=== PATIENT | male | born 1950 | race Caucasian/White ===

== ENCOUNTER 2019-11-28 12:21 | Outpatient (CLI) | payer MEDICARE, OTHER, SELFPAY ==
[2019-11-28 13:26] LABS: Hematocrit 41.5 % (42.0-52.0); Hemoglobin 13.2 g/dL (11.7-16.6); Mean Corpuscular HGB Conc 31.8 g/dL (30.0-36.0); Mean Corpuscular Hemoglobin 26.4 pg (28.0-34.0); Mean Platelet Volume 10.2 fL (7.4-10.4); Platelet Count 208 10^3/cmm (130-400); Red Cell Distribution Width 14.2 % (12.1-15.1); White Blood Count 5.3 10^3/uL (4.0-10.0)
[2019-11-28 13:27] LABS: Ferritin 19 ng/mL (30-400); Iron 55 ug/dL (59-158); Percent Saturation 26.9 % (20-50); Total Iron Binding Capacity 204 mcg/dl; Unsaturated Iron Binding 149 ug/dL (112-347)
[2019-11-28 13:48] LABS: Platelet Estimate Normal (Normal); Total Cells Counted 100 (0-100)
[2019-11-28 13:51] LABS: Absolute Segmented Neutrophil 3.2 10/cmm (1.6-7.1); Band Neutrophils Absolute 0.1 10^3/cmm (0.0-1.2); Lymphocytes 29 %; Monocytes Absolute 0.4 10^3/cmm (0.1-0.6); Segmented Neutrophils 62 %
== END 2019-11-28 12:22 | disposition home or self-care (01) ==
LOC: ONCMED 12:25
PROVIDERS: Family Provider Family Medicine; PCP Family Medicine; Visit Provider Internal Medicine Medical Oncology
DX: E83.119 Hemochromatosis, unspecified (principal)
CPT/HCPCS: 36415; 82728; 83540; 83550; 85007; 85027

== ENCOUNTER 2019-12-26 09:42 | Outpatient (CLI) | payer MEDICARE, OTHER, SELFPAY ==
[2019-12-26 10:16] LABS: Hematocrit 42.7 % (42.0-52.0); Hemoglobin 13.3 g/dL (11.7-16.6); Lymphocytes # 1.7 10^3/uL (0.8-4.8); Lymphocytes % 51.8 %; Mean Corpuscular HGB Conc 31.1 g/dL (30.0-36.0); Mean Corpuscular Hemoglobin 26.4 pg (28.0-34.0); Mean Corpuscular Volume 84.9 fL (80-94); Mean Platelet Volume 11.4 fL (7.4-10.4); Monocytes # 0.4 10^3/uL (0.2-0.9); Monocytes % 11.3 %; Neutrophils # 1.2 10^3/uL (1.8-7.7); Neutrophils % 36.9 %; Nucleated Red Blood Cells % 0 %; Platelet Count 149 10^3/cmm (130-400); Red Blood Count 5.03 10^6/uL (4.1-5.3); Red Cell Distribution Width 15.2 % (12.1-15.1); White Blood Count 3.3 10^3/uL (4.0-10.0)
[2019-12-26 10:32] LABS: Ferritin 20 ng/mL (30-400); Iron 77 ug/dL (59-158)
[2019-12-26 10:37] LABS: Percent Saturation 31.1 % (20-50); Total Iron Binding Capacity 247 mcg/dl; Unsaturated Iron Binding 170 ug/dL (112-347)
== END 2019-12-26 09:43 | disposition home or self-care (01) ==
LOC: ONCMED 09:43
PROVIDERS: Family Provider Family Medicine; PCP Family Medicine; Visit Provider Nurse Practitioner
DX: E83.119 Hemochromatosis, unspecified (principal)
CPT/HCPCS: 36415; 82728; 83540; 83550; 85025

== ENCOUNTER 2020-02-26 12:45 | Outpatient (CLI) | payer MEDICARE, OTHER, SELFPAY ==
[2020-02-26 13:36] LABS: Hematocrit 45.3 % (42.0-52.0); Hemoglobin 14.2 g/dL (11.7-16.6); Lymphocytes # 2.3 10^3/uL (0.8-4.8); Lymphocytes % 45.8 %; Mean Corpuscular HGB Conc 31.3 g/dL (30.0-36.0); Mean Corpuscular Volume 86.3 fL (80-94); Mean Platelet Volume 10.4 fL (7.4-10.4); Monocytes # 0.6 10^3/uL (0.2-0.9); Monocytes % 12.5 %; Neutrophils # 2.1 10^3/uL (1.8-7.7); Neutrophils % 41.7 %; Nucleated Red Blood Cells % 0 %; Platelet Count 201 10^3/cmm (130-400); Red Blood Count 5.25 10^6/uL (4.1-5.3); White Blood Count 5.1 10^3/uL (4.0-10.0)
[2020-02-26 13:48] LABS: Ferritin 22 ng/mL (30-400); Iron 45 ug/dL (59-158); Percent Saturation 18.5 % (20-50); Total Iron Binding Capacity 243 mcg/dl; Unsaturated Iron Binding 198 ug/dL (112-347)
== END 2020-02-26 12:46 | disposition home or self-care (01) ==
LOC: ONCMED 12:48
PROVIDERS: Family Provider Family Medicine; PCP Family Medicine; Visit Provider Internal Medicine Medical Oncology
DX: E83.110 Hereditary hemochromatosis (principal)
CPT/HCPCS: 36415; 82728; 83540; 83550; 85025; 99195

== ENCOUNTER 2020-05-28 12:23 | Outpatient (CLI) | payer MEDICARE, OTHER, SELFPAY ==
[2020-05-28 13:19] LABS: Basophils % 0.2 %; Hematocrit 41.8 % (42.0-52.0); Hemoglobin 13.1 g/dL (11.7-16.6); Lymphocytes # 2.2 10^3/uL (0.8-4.8); Lymphocytes % 50.2 %; Mean Corpuscular HGB Conc 31.3 g/dL (30.0-36.0); Mean Corpuscular Volume 86.2 fL (80-94); Mean Platelet Volume 10.4 fL (7.4-10.4); Monocytes # 0.4 10^3/uL (0.2-0.9); Monocytes % 9.9 %; Neutrophils # 1.73 10^3/uL (1.8-7.7); Neutrophils % 39.7 %; Nucleated Red Blood Cells % 0 %; Platelet Count 189 10^3/cmm (130-400); Red Blood Count 4.85 10^6/uL (4.1-5.3); Red Cell Distribution Width 14.8 % (12.1-15.1); White Blood Count 4.4 10^3/uL (4.0-10.0)
[2020-05-28 13:38] LABS: Ferritin 17 ng/mL (30-400); Iron 57 ug/dL (59-158); Percent Saturation 24.6 % (20-50); Total Iron Binding Capacity 231 mcg/dl; Unsaturated Iron Binding 174 ug/dL (112-347)
== END 2020-05-28 12:24 | disposition home or self-care (01) ==
LOC: ONCMED 12:26
PROVIDERS: PCP Family Medicine; Visit Provider Internal Medicine Medical Oncology
DX: E83.110 Hereditary hemochromatosis (principal)
CPT/HCPCS: 82728; 83540; 83550; 85025; 99195

== ENCOUNTER 2020-08-28 11:42 | Outpatient (CLI) | payer MEDICARE, OTHER, SELFPAY ==
[2020-08-28 12:24] LABS: Basophils % 0.2 %; Hemoglobin 13.3 g/dL (11.7-16.6); Lymphocytes % 45.9 %; Mean Corpuscular HGB Conc 30.9 g/dL (30.0-36.0); Mean Corpuscular Hemoglobin 26.2 pg (28.0-34.0); Mean Corpuscular Volume 84.8 fL (80-94); Mean Platelet Volume 10.4 fL (7.4-10.4); Monocytes # 0.5 10^3/uL (0.2-0.9); Monocytes % 11.5 %; Neutrophils % 42.4 %; Nucleated Red Blood Cells % 0 %; Platelet Count 172 10^3/cmm (130-400); Red Blood Count 5.07 10^6/uL (4.1-5.3); Red Cell Distribution Width 16.2 % (12.1-15.1); White Blood Count 4.3 10^3/uL (4.0-10.0)
[2020-08-28 13:23] LABS: Alanine Aminotransferase 19 U/L (0-41); Albumin Level 4.2 g/dL (3.5-5.2); Alkaline Phosphatase 108 IU/L (40-130); Anion Gap 13.2 (5-19); Aspartate Amino Transferase 21 U/L (0-40); Blood Urea Nitrogen 23 mg/dL (8-23); Calcium 9.7 mg/dL (8.5-10.5); Carbon Dioxide 27 mmol/L (22-29); Chloride 106 mmol/L (98-107); Ferritin 23 ng/mL (30-400); Globulin 2.9 g/dL (1.3-4.6); Glucose 108 mg/dL (65-115); Iron 64 ug/dL (59-158); Osmolality Calculated 298 mOsm/kg (285-295); Percent Saturation 30.4 % (20-50); Potassium 4.2 mmol/L (3.5-5.1); Sodium 142 mmol/L (136-145); Total Bilirubin 0.2 mg/dL (0.15-1.2); Total Iron Binding Capacity 210 mcg/dl; Total Protein 7.1 g/dL (6.6-8.7); Unsaturated Iron Binding 146 ug/dL (112-347)
--- NOTE | 2020-08-31 14:35 | ONC FU_ITS ---
Dr. Baker Patient Follow-Up Note Patient: Yefri Mandel Unit #: [id number]: [id number] Dicatated By: Mendoza Baker M.D.Date of Visit:Aug 28, 2020 Onc Med Follow-up/Prog Note Chief Complaint: Hemochromatosis. History of Present Illness: This is a 70 year-old man with hereditary hemochromatosis. His hemochromatosis was initially discovered in 2002. He underwent screening because his brother had been diagnosed with it. He indicated that his ferritin level at that time was in excess of 10,000 ng/mL and that he required weekly phlebotomies for a year and a half to get it down to normal. I had seen him initially in February 2013. His serum iron was 88 mcg/dL and his ferritin was actually low at 17 ng/mL, and I had recommended observation/expectant management. He opted to just continue his regular follow-up with Dr. Reyez. His other medical illnesses include GERD, degenerative arthritis, and benign prostatic hypertrophy. He had a suspected TIA in 2011. He was placed on aspirin prophylaxis. He is a nonsmoker. INTERIM HISTORY: Last fall he had stopped his aspirin because of increased hemorrhoidal bleeding. He then had an episode of visual loss in the right eye which was actually worse than the episode he had in 2012. He restarted aspirin, but just taking 1 tablet every 3 days. In the meantime, he had laboratory studies on 11/17/2018 which included CBC showing hemoglobin 16.9 g with white blood cell count 4000 and platelet count 187,000. His serum iron studies showed elevated serum iron of 167 mcg/dL with transferrin saturation 69%. The ferritin had increased to 131 ng/mL. At that point I had recommended that he restart monthly phlebotomies. As of August 2019 his ferritin was back down to 31 ng/mL, at that point his phlebotomies were reduced to every 3 months. He is seen for a scheduled visit. He has been feeling good generally. He has pretty good energy, and he has normal activity. ECOG score is 0. His appetite is good. He has no fever or night sweats. He has no shortness of breath, cough, or chest pain. He has no GI complaints other than chronic constipation, which he manages with stool softeners. He has some chronic bladder symptoms, including nocturia 3 or 4 times, but bladder function remains adequate with tamsulosin. He does have fairly generalized arthritis pain, particularly in the knees, shoulders, and wrists. He has had a few slight headaches. He does complain that his hands go to sleep very easily. He has no other focal neurologic symptoms. Medications: Aspirin 1 Tablet (of 81 mg) Oral daily, Carvedilol 1 Tablet (of 6.25 mg) Oral daily, CeleBREX 100 mg - Take 1 Capsule Oral daily, Finasteride 1 Tablet (of 5 mg) Oral daily, Flomax 0.4 mg - Take 1 Capsule Oral daily, Pantoprazole Sodium 1 Tablet (of 40 mg) Tablet, enteric coated Oral daily Allergies: No Known Allergies. Review of Systems: Constitutional - He has pretty good energy. His activity is normal. Appetite is good and weight is stable. No fever, night sweats, or hot flashes. ECOG score is 0, ENMT - No sinus congestion/drainage. No mouth sores. No sore throat or difficulty swallowing, Hematologic/Lymphatic - No abnormal bruising or bleeding, Respiratory - No shortness of breath. No cough. No pleuritic pain or hemoptysis, Cardiovascular - No angina pain. No palpitations, Gastrointestinal - No nausea or vomiting. No heartburn or acid reflux. He has chronic constipation. He has been taking stool softeners. No blood in the stool or black stools, Genitourinary (M) - No dysuria or hematuria. He has urinary frequency and nocturia. No urgency or incontinence. He does see a urologist, Musculoskeletal - He has arthritis pain, most significantly in his knees, but also in his shoulders, wrists, and hands, Integumentary - No skin rash, Neurologic - He has had a few slight headaches. No dizziness. His hands tend to go to sleep easily. No other focal neurologic symptoms, Psychiatric - No anxiety or depression. He has some difficulty sleeping. Vital Signs: Performed on Aug 28, 2020 13:13 Height - 68.00 in Weight - 203.6 lbs (HIGH) BSA - 2.06 sq.m BMI - 30.96 (HIGH) Temperature - 97.8 F (LOW) Pulse - 72 /min Respiration - 18 /min BP - 124/63 mm(hg) O2 Sat - 99 % Pain - 0 Physical Examination: Constitutional - He looks good generally, Eyes - Sclerae nonicteric. Conjunctivae clear, ENMT - No lesions noted in the oral cavity, Hematologic/Lymphatic - No cervical, clavicular, or axillary adenopathy, Respiratory - Lungs are clear with good air movement bilaterally, Cardiovascular - Heart rhythm is regular. There is no murmur, gallop, or rub noted, Abdomen - Mildly distended. Liver and spleen are not enlarged. No abdominal mass or ascites noted. No inguinal adenopathy, Extremities - No edema, Neurologic - No focal neurologic deficits noted. Lab/Imaging: Test performed on Aug 28, 2020 12:10 Ferritin 23 ng/mL Iron 64 mcg/dL Sodium 142 mmol/L Iron Binding Capacity (TIBC) 210 mcg/dl Potassium 4.2 mmol/L % Iron Saturation 30.4 % Chloride 106 mmol/L CO2 27 mmol/L UIBC 146 mcg/dL Anion Gap 13.2 BUN 23 mg/dL Creatinine 0.8 mg/dL Cr Clearance (Est) 109.0300 mL/min Glucose 108 mg/dL Osmolality - Calculated 298 mOsm/kg Calcium 9.7 mg/dL Protein, Total 7.1 g/dL Albumin 4.2 g/dL Globulin 2.9 g/dL Bilirubin, Total 0.2 mg/dL ALT (SGPT) 19 U/L AST (SGOT) 21 U/L Alkaline Phosphatase 108 IU/L WBC 4.3 10 3/uL RBC 5.07 10 6/uL HGB 13.3 g/dL HCT 43.0 % MCV 84.8 fL MCH 26.2 pg MCHC 30.9 g/dL RDW 16.2 % Platelet Count 172 10 3/cmm MPV 10.4 fL Neutrophils 1.80 10 3/uL Lymphocytes 2.0 10 3/uL Monocytes 0.5 10 3/uL Eosinophils 0.0 10 3/uL Basophils 0.0 10 3/uL Neutrophil % 42.4 % Lymphocyte % 45.9 % Monocyte % 11.5 % Eosinophil % 0.0 % Basophils % 0.2 % NRBC % 0 % Impression: 1. Patient with hereditary hemochromatosis, initially diagnosed in 2002. It has been managed very well with phlebotomies. As of my initial visit with him in February 2013 his serum iron was in normal range and his ferritin was relatively low at 17 ng/mL. 2. He has been followed on expected management with gradual increase in his iron levels, currently with transferrin saturation 59% and ferritin level 131 ng/mL. 3. He had a recent TIA episode while off aspirin prophylaxis. His other medical illnesses include: 4. Hypertension. 5. Hyperlipidemia. 6. GERD. 7. Degenerative arthritis. 8. Benign prostatic hypertrophy. 9. He has a history of prior TIA in 2011. His laboratory studies in October 2018 that shows some increase in his transferrin saturation and ferritin levels, and at that point I did recommend that he restart monthly phlebotomy. As of his follow-up visit in February the transferrin saturation was still elevated, though his ferritin at that point had back down to 59 ng/mL. As of his follow-up visit in August 2019 he had been getting treatment for hives. A specific cause for that was never determined, but it did get better. His ferritin level at that point had decreased to 31 ng/mL, and the frequency of his phlebotomies was reduced to every 3 months. He has since then been doing well clinically. His transferrin saturation and his ferritin level have remained in target range. Plan: He will be phlebotomized today, but going forward I will reduced the frequencies of his phlebotomies to every 6 months. I will see him again in 1 year. Signed By: Mendoza Baker M.D. <<Signature on File>>
== END 2020-08-28 11:43 | disposition home or self-care (01) ==
LOC: ONCMED 11:46
PROVIDERS: PCP Family Medicine; Visit Provider Internal Medicine Medical Oncology
DX: E83.110 Hereditary hemochromatosis (principal); D50.9 Iron deficiency anemia, unspecified; I10 Essential (primary) hypertension; E78.5 Hyperlipidemia, unspecified; K21.9 Gastro-esophageal reflux disease without esophagitis; M19.90 Unspecified osteoarthritis, unspecified site; N40.0 Benign prostatic hyperplasia without lower urinary tract symptoms; Z86.73 Personal history of transient ischemic attack (TIA), and cerebral infarction without residual deficits
CPT/HCPCS: 80053; 82728; 83540; 83550; 85025; 99195; 99214

== ENCOUNTER 2021-02-27 12:52 | Outpatient (CLI) | payer MEDICARE, OTHER, SELFPAY ==
[2021-02-27 14:04] LABS: Basophils % 0.6 %; Hemoglobin 13.5 g/dL (11.7-16.6); Lymphocytes # 2.2 10^3/uL (0.8-4.8); Lymphocytes % 41.4 %; Mean Corpuscular HGB Conc 31.4 g/dL (30.0-36.0); Mean Corpuscular Hemoglobin 27.1 pg (28.0-34.0); Mean Corpuscular Volume 86.2 fL (80-94); Mean Platelet Volume 10.2 fL (7.4-10.4); Monocytes # 0.7 10^3/uL (0.2-0.9); Monocytes % 12.5 %; Neutrophils % 45.3 %; Nucleated Red Blood Cells % 0 %; Platelet Count 205 10^3/cmm (130-400); Red Blood Count 4.99 10^6/uL (4.1-5.3); Red Cell Distribution Width 15.5 % (12.1-15.1); White Blood Count 5.3 10^3/uL (4.0-10.0)
[2021-02-27 14:29] LABS: Iron 40 ug/dL (59-158); Total Iron Binding Capacity 221 mcg/dl; Unsaturated Iron Binding 181 ug/dL (112-347)
[2021-02-27 14:30] LABS: Ferritin 20 ng/mL (30-400)
== END 2021-02-27 12:53 | disposition home or self-care (01) ==
LOC: ONCMED 12:58
PROVIDERS: PCP Family Medicine; Visit Provider Internal Medicine Medical Oncology
DX: E83.110 Hereditary hemochromatosis (principal); D50.9 Iron deficiency anemia, unspecified
CPT/HCPCS: 82728; 83540; 83550; 85025; 99195

== ENCOUNTER 2021-11-05 11:01 | Outpatient (CLI) | payer MEDICARE, OTHER, SELFPAY ==
[2021-11-05 11:57] LABS: Basophils % 0.5 %; Hematocrit 47.8 % (42.0-52.0); Hemoglobin 15.6 g/dL (11.7-16.6); Lymphocytes % 48.6 %; Mean Corpuscular HGB Conc 32.6 g/dL (30.0-36.0); Mean Corpuscular Hemoglobin 28.9 pg (28.0-34.0); Mean Corpuscular Volume 88.7 fl (80-94); Mean Platelet Volume 10.3 fL (7.4-10.4); Monocytes # 0.4 10^3/uL (0.2-0.9); Monocytes % 10.6 %; Neutrophils # 1.66 10^3/uL (1.8-7.7); Neutrophils % 40.1 %; Nucleated Red Blood Cells % 0 %; Platelet Count 183 10^3/cmm (130-400); Red Blood Count 5.39 10^6/uL (4.1-5.3); Red Cell Distribution Width 15.1 % (12.1-15.1); White Blood Count 4.1 10^3/uL (4.0-10.0)
[2021-11-05 12:30] LABS: Alanine Aminotransferase 16 U/L (0-41); Albumin Level 4.2 g/dL (3.5-5.2); Alkaline Phosphatase 117 IU/L (40-130); Anion Gap 16.8 (5-19); Aspartate Amino Transferase 20 U/L (0-40); Blood Urea Nitrogen 20 mg/dL (8-23); Calcium 8.9 mg/dL (8.5-10.5); Carbon Dioxide 25 mmol/L (22-29); Chloride 100 mmol/L (98-107); Ferritin 41 ng/mL (30-400); Globulin 2.9 g/dL (1.3-4.6); Glucose 85 mg/dL (65-115); Iron 104 ug/dL (59-158); Osmolality Calculated 286 mOsm/kg (285-295); Percent Saturation 44.8 % (20-50); Potassium 4.8 mmol/L (3.5-5.1); Sodium 137 mmol/L (136-145); Total Bilirubin 0.4 mg/dL (0.15-1.2); Total Iron Binding Capacity 232 mcg/dl; Total Protein 7.1 g/dL (6.6-8.7); Unsaturated Iron Binding 128 ug/dL (112-347)
[2021-11-05 14:35] LABS: Erythrocyte Sedimentation Rate 12 mm/hr (0-10)
[2021-11-06 15:47] LABS: Anti-Nuclear Antibody Screen NEGATIVE (NEGATIVE)
--- NOTE | 2021-11-08 12:27 | ONC FU_ITS ---
Dr. Baker Patient Follow-Up Note Patient: Yefri Mandel Unit #: [id number]: 1950 Dicatated By: Mendoza Baker M.D.Date of Visit:Nov 05, 2021 Onc Med Follow-up/Prog Note Chief Complaint: Hemochromatosis. History of Present Illness: This is a 71 year-old man with hereditary hemochromatosis. His hemochromatosis was initially discovered in 2002. He underwent screening because his brother had been diagnosed with it. He indicated that his ferritin level at that time was in excess of 10,000 ng/mL and that he required weekly phlebotomies for a year and a half to get it down to normal. I had seen him initially in February 2013. His serum iron was 88 mcg/dL and his ferritin was actually low at 17 ng/mL, and I had recommended observation/expectant management. He opted to just continue his regular follow-up with Dr. Reyez. As of October 2018 his serum iron studies showed elevated transferrin saturation at 69% with his ferritin increased to 131 ng/mL. At that point I had recommended that he restart monthly phlebotomies. As of August 2019 his ferritin was back down to 31 ng/mL, and his phlebotomies were reduced to every 3 months. As of August 2020 his transferrin saturation and ferritin remained in target range and he was recommended to continue phlebotomies at 6-month intervals. His other medical illnesses include GERD, degenerative arthritis, and benign prostatic hypertrophy. He had a suspected TIA in 2011. He was placed on aspirin prophylaxis. In 2017 he had stopped his aspirin because of increased hemorrhoidal bleeding. He then had an episode of visual loss in the right eye which was actually worse than the episode he had in 2012. He restarted aspirin, but just taking 1 tablet every 3 days. He is a nonsmoker. INTERIM HISTORY: He is seen for a follow-up visit. He has not been feeling as good generally, mainly because his arthritis has been bothering him a lot. He says his knees are worn out and recently has been having significant pain in the left hip area. He also has pain in his fingers, wrists, and right elbow and he complains that his fingers go to sleep very easily. He is on treatment with Celebrex 100 mg twice daily. His energy is just so-so. ECOG score is 1. He has good appetite. He has no fever or night sweats. He has just occasional cough. He does not complain of shortness of breath or chest pain. He has no GI/ complaints other than some chronic constipation. He does not complain of headache. He has had some dizzy spells. He has had numbness in his right hand and he also has numbness in his left leg when he is standing. Medications: Aspirin 1 Tablet (of 81 mg) Oral daily, CeleBREX 100 mg - Take 1 Capsule Oral daily, Finasteride 1 Tablet (of 5 mg) Oral daily, Flomax 0.4 mg - Take 1 Capsule Oral daily, Losartan Potassium 1 Tablet (of 25 mg) Oral daily, Pantoprazole Sodium 1 Tablet (of 40 mg) Tablet, enteric coated Oral daily Allergies: No Known Allergies. Vital Signs: Performed on Nov 05, 2021 15:25 Height - 68.00 in Weight - 194.6 lbs (LOW) BSA - 2.02 sq.m BMI - 29.59 Temperature - 97.8 F (LOW) Pulse - 69 /min Respiration - 16 /min BP - 128/75 mm(hg) O2 Sat - 98 % Pain - 5 Fatigue - 3 Physical Examination: Constitutional - He looks pretty good generally, Eyes - Sclerae nonicteric. Conjunctivae clear, ENMT - No lesions noted in the oral cavity, Hematologic/Lymphatic - No cervical, clavicular, or axillary adenopathy, Respiratory - Lungs are clear with good air movement bilaterally, Cardiovascular - Heart rhythm is regular. There is no murmur, gallop, or rub noted, Abdomen - Mildly distended. Liver and spleen are not enlarged. No abdominal mass or ascites noted. No inguinal adenopathy, Extremities - No edema, Neurologic - No focal neurologic deficits noted. Lab/Imaging: Test performed on Nov 05, 2021 13:30 Uric Acid 5.0 mg/dL ESR (Sed Rate) 12 mm/hr ANDRY NEGATIVE ANDRY IFA is a first line screen for detecting the presence of up to approximately 150 autoantibodies in various autoimmune diseases. A negative ANDRY IFA result suggests an ANDRY-associated autoimmune disease is not present at this time, but is not definitive. If there is high clinical suspicion for Sjogren's syndrome, testing for anti-SS-A/Ro antibody should be considered. Anti-Bev-1 antibody should be considered for clinically suspected inflammatory myopathies. AC-0: Negative International Consensus on ANDRY Patterns (https://doi.org/10.1515/sfly-8418-0597) For additional information, please refer to http://education.[employer]/faq/JJL289 (This link is being provided for informational/ educational purposes only.) THIS TEST WAS PERFORMED AT: [facility] [address] [place] [address] BERENICE THAPA DO,MPH Test performed on Nov 05, 2021 11:37 Ferritin 41 ng/mL Iron 104 mcg/dL Sodium 137 mmol/L Iron Binding Capacity (TIBC) 232 mcg/dl Potassium 4.8 mmol/L % Iron Saturation 44.8 % Chloride 100 mmol/L CO2 25 mmol/L UIBC 128 mcg/dL Anion Gap 16.8 BUN 20 mg/dL Creatinine 0.7 mg/dL Cr Clearance (Est) 117.3400 mL/min Glucose 85 mg/dL Osmolality - Calculated 286 mOsm/kg Calcium 8.9 mg/dL Protein, Total 7.1 g/dL Albumin 4.2 g/dL Globulin 2.9 g/dL Bilirubin, Total 0.4 mg/dL ALT (SGPT) 16 U/L AST (SGOT) 20 U/L Alkaline Phosphatase 117 IU/L WBC 4.1 10 3/uL RBC 5.39 10 6/uL HGB 15.6 g/dL HCT 47.8 % MCV 88.7 fl MCH 28.9 pg MCHC 32.6 g/dL RDW 15.1 % Platelet Count 183 10 3/cmm MPV 10.3 fL Neutrophils 1.66 10 3/uL Lymphocytes 2.0 10 3/uL Monocytes 0.4 10 3/uL Eosinophils 0.0 10 3/uL Basophils 0.0 10 3/uL Neutrophil % 40.1 % Lymphocyte % 48.6 % Monocyte % 10.6 % Eosinophil % 0.0 % Basophils % 0.5 % NRBC % 0 % Problem List: 1. Hereditary hemochromatosis. 2. Hypertension. 3. Hyperlipidemia. 4. GERD. 5. Degenerative arthritis. 6. Benign prostatic hypertrophy. 7. He has a history of TIAs. Problems Addressed with this Encounter and Plan: Patient with hereditary hemochromatosis, initially diagnosed in 2002. He has been managed very well with phlebotomies. His current serum iron studies show transferrin saturation in the upper normal range at 44.8%, and his ferritin level remains in target range at 41 ng/mL. As such, he will be phlebotomized today and he will then be scheduled for a follow-up visit in 6 months. Signed By: Mendoza Baker M.D. <<Signature on File>>
== END 2021-11-05 11:02 | disposition home or self-care (01) ==
LOC: ONCMED 11:06
PROVIDERS: PCP Family Medicine; Visit Provider Internal Medicine Medical Oncology
DX: E83.110 Hereditary hemochromatosis (principal); I10 Essential (primary) hypertension; E78.5 Hyperlipidemia, unspecified; K21.9 Gastro-esophageal reflux disease without esophagitis; M19.90 Unspecified osteoarthritis, unspecified site; N40.0 Benign prostatic hyperplasia without lower urinary tract symptoms; Z86.73 Personal history of transient ischemic attack (TIA), and cerebral infarction without residual deficits; Z79.82 Long term (current) use of aspirin
CPT/HCPCS: 36415; 80053; 82728; 83540; 83550; 84550; 85025; 85651; 86038; 86431; 99195; 99214

== ENCOUNTER → 2021-12-25 09:58 | Outpatient (BNVA) | payer MEDICARE, OTHER, SELFPAY | PROVIDERS: PCP Family Medicine; Visit Provider Student in an Organized Health Care Education/Training Program | DX: Z01.818 Encounter for other preprocedural examination (principal) | CPT/HCPCS: 87635 ==

== ENCOUNTER 2022-05-25 12:17 | Oncology outpatient (recurring) (ONCR) | payer MEDICARE, OTHER, SELFPAY ==
[2022-05-25 13:10] LABS: Basophils % 0.5 %; Hematocrit 46.1 % (42.0-52.0); Hemoglobin 14.9 g/dL (11.7-16.6); Lymphocytes # 1.7 10^3/uL (0.8-4.8); Lymphocytes % 30.4 %; Mean Corpuscular HGB Conc 32.3 g/dL (30.0-36.0); Mean Corpuscular Hemoglobin 28.1 pg (28.0-34.0); Mean Platelet Volume 10.3 fL (7.4-10.4); Monocytes # 0.5 10^3/uL (0.2-0.9); Monocytes % 8.4 %; Neutrophils # 3.45 10^3/uL (1.8-7.7); Neutrophils % 60.5 %; Nucleated Red Blood Cells % 0 %; Platelet Count 208 10^3/cmm (130-400); Red Cell Distribution Width 14.2 % (12.1-15.1); White Blood Count 5.7 10^3/uL (4.0-10.0)
[2022-05-25 13:28] LABS: Alanine Aminotransferase 21 U/L (0-41); Albumin Level 4.5 g/dL (3.5-5.2); Alkaline Phosphatase 110 IU/L (40-130); Anion Gap 12.5 (5-19); Blood Urea Nitrogen 20 mg/dL (8-23); Calcium 9.7 mg/dL (8.5-10.5); Carbon Dioxide 29 mmol/L (22-29); Chloride 102 mmol/L (98-107); Ferritin 51 ng/mL (30-400); Globulin 2.9 g/dL (1.3-4.6); Glucose 94 mg/dL (65-115); Iron 92 ug/dL (59-158); Osmolality Calculated 290 mOsm/kg (285-295); Percent Saturation 40.5 % (20-50); Potassium 4.5 mmol/L (3.5-5.1); Sodium 139 mmol/L (136-145); Total Bilirubin 0.4 mg/dL (0.15-1.2); Total Iron Binding Capacity 227 mcg/dl; Total Protein 7.4 g/dL (6.6-8.7); Unsaturated Iron Binding 135 ug/dL (112-347)
[2022-05-25 14:01] LABS: Aspartate Amino Transferase 27 U/L (0-40)
== END 2022-06-24 23:59 | disposition home or self-care (01) ==
PROVIDERS: PCP Family Medicine; Visit Provider Internal Medicine Medical Oncology
DX: E83.110 Hereditary hemochromatosis (principal); Z79.899 Other long term (current) drug therapy
CPT/HCPCS: 80053; 82728; 83540; 83550; 85025; 99195; 99214

== ENCOUNTER → 2022-12-02 09:46 | Outpatient (BNVA) | payer MEDICARE, OTHER, SELFPAY | PROVIDERS: PCP Family Medicine; Visit Provider Family Medicine | DX: N40.0 Benign prostatic hyperplasia without lower urinary tract symptoms (principal); E78.5 Hyperlipidemia, unspecified; M19.90 Unspecified osteoarthritis, unspecified site; I10 Essential (primary) hypertension; E83.110 Hereditary hemochromatosis | CPT/HCPCS: 80053; 80061; 82728; 84153; 85025 ==

== ENCOUNTER 2022-12-15 13:00 | Oncology outpatient (recurring) (ONCR) | payer MEDICARE, OTHER, SELFPAY ==
[2022-12-15 14:25] VITALS: BP 147/80; PULSE 62; RESP 16; TEMP 36; O2SAT 98
== END 2022-12-22 23:59 | disposition home or self-care (01) ==
PROVIDERS: PCP Family Medicine; Visit Provider Internal Medicine Medical Oncology
DX: E83.110 Hereditary hemochromatosis (principal)
CPT/HCPCS: 99195

== ENCOUNTER → 2023-05-24 09:42 | Outpatient (BNVA) | payer MEDICARE, OTHER, SELFPAY | PROVIDERS: PCP Family Medicine; Visit Provider Family Medicine | DX: E78.5 Hyperlipidemia, unspecified (principal); I10 Essential (primary) hypertension; E83.110 Hereditary hemochromatosis | CPT/HCPCS: 80053; 80061; 82728; 83550; 85025 ==

== ENCOUNTER 2023-06-01 11:53 | Oncology outpatient (recurring) (ONCR) | payer MEDICARE, OTHER, SELFPAY ==
[2023-06-01 12:05] VITALS: BP 154/81; PULSE 64; RESP 18; TEMP 36.7; O2SAT 96
[2023-06-01 12:32] LABS: Hematocrit 45.1 % (42.0-52.0); Hemoglobin 14.6 g/dL (11.7-16.6)
[2023-06-01 14:00] VITALS: BP 135/74; PULSE 65; RESP 16; O2SAT 96
== END 2023-06-24 23:59 | disposition home or self-care (01) ==
PROVIDERS: PCP Family Medicine; Visit Provider Internal Medicine Medical Oncology
DX: E83.110 Hereditary hemochromatosis (principal); Z87.891 Personal history of nicotine dependence
CPT/HCPCS: 36415; 85014; 85018; 99195; 99214

== ENCOUNTER → 2023-10-28 11:23 | Outpatient (BNVA) | payer MEDICARE, OTHER, SELFPAY | PROVIDERS: PCP Family Medicine; Visit Provider Family Medicine | DX: R30.0 Dysuria (principal) | CPT/HCPCS: 81003; 87077; 87086; 87184 ==

== ENCOUNTER 2023-11-30 09:23 | Oncology outpatient (recurring) (ONCR) | payer MEDICARE, OTHER, SELFPAY ==
[2023-11-30 09:50] LABS: Basophils % 0.2 %; Hematocrit 43.8 % (37-53); Lymphocytes # 1.9 10^3/uL (0.8-4.8); Lymphocytes % 42.8 %; Mean Corpuscular Hemoglobin 27.2 pg (27-33); Mean Corpuscular Volume 85.2 fl (82-101); Mean Platelet Volume 9.6 fL (7.4-10.4); Monocytes # 0.4 10^3/uL (0.2-0.9); Neutrophils # 2.13 10^3/uL (1.8-7.7); Neutrophils % 47.8 %; Nucleated Red Blood Cells % 0 %; Platelet Count 180 10^3/cmm (157-399); Red Blood Count 5.14 10^6/uL (3.85-5.65); Red Cell Distribution Width 15.2 % (12.1-15.1); White Blood Count 4.46 10^3/uL (3.29-11.43)
[2023-11-30 10:08] LABS: Alanine Aminotransferase 21 U/L (0-41); Albumin Level 4.1 g/dL (3.5-5.2); Alkaline Phosphatase 165 U/L (40-130); Anion Gap 11.4 (5-19); Aspartate Amino Transferase 21 U/L (0-40); Blood Urea Nitrogen 23 mg/dL (8-23); Calcium 9.2 mg/dL (8.5-10.5); Carbon Dioxide 27 mmol/L (22-29); Chloride 103 mmol/L (98-107); Chol HDL Ratio 4.56 mg/dL (1.0-5.00); Cholesterol 219 mg/dL (0-200); Ferritin 23 ng/mL (30-400); Glucose 102 mg/dL (65-115); HDL Cholesterol 48 mg/dL (60-100); Iron 44 ug/dL (59-158); LDL Cholesterol Calculated 129 mg/dL (50-129); LDL HDL Ratio 2.69 RATIO (0.00-3.22); Osmolality Calculated 288 mOsm/kg (285-295); Percent Saturation 19.2 % (20-50); Potassium 4.4 mmol/L (3.5-5.1); Sodium 137 mmol/L (136-145); Total Bilirubin 0.3 mg/dL (0.15-1.2); Total Iron Binding Capacity 229 mcg/dl; Total Protein 7.1 g/dL (6.6-8.7); Triglycerides 212 mg/dL (0-150); Unsaturated Iron Binding 185 ug/dL (112-347)
== END 2023-12-23 23:59 | disposition home or self-care (01) ==
PROVIDERS: PCP Family Medicine; Visit Provider Internal Medicine Medical Oncology
DX: E83.110 Hereditary hemochromatosis (principal); E78.5 Hyperlipidemia, unspecified
CPT/HCPCS: 36415; 80053; 80061; 82728; 83540; 83550; 85025

== ENCOUNTER 2024-05-29 10:41 | Oncology outpatient (recurring) (ONCR) | payer MEDICARE, OTHER, SELFPAY ==
[2024-05-29 09:49] LABS: Basophils % 0.5 %; Hematocrit 45.5 % (37-53); Lymphocytes # 1.6 10^3/uL (0.8-4.8); Lymphocytes % 38.8 %; Mean Corpuscular Hemoglobin 29.4 pg (27-33); Mean Corpuscular Volume 89.2 fl (82-101); Mean Platelet Volume 9.8 fL (7.4-10.4); Monocytes # 0.6 10^3/uL (0.2-0.9); Monocytes % 13.4 %; Neutrophils # 1.97 10^3/uL (1.8-7.7); Neutrophils % 47.1 %; Nucleated Red Blood Cells % 0 %; Platelet Count 187 10^3/cmm (157-399); Red Cell Distribution Width 14.4 % (12.1-15.1); White Blood Count 4.18 10^3/uL (3.29-11.43)
[2024-05-29 10:09] LABS: Alanine Aminotransferase 19 U/L (0-41); Albumin Level 4.2 g/dL (3.5-5.2); Alkaline Phosphatase 134 U/L (40-130); Anion Gap 14.7 (5-19); Aspartate Amino Transferase 19 U/L (0-40); Blood Urea Nitrogen 22 mg/dL (8-23); Calcium 9.4 mg/dL (8.5-10.5); Carbon Dioxide 25 mmol/L (22-29); Chloride 101 mmol/L (98-107); Chol HDL Ratio 4.53 mg/dL (1.0-5.00); Cholesterol 213 mg/dL (0-200); Globulin 2.9 g/dL (1.3-4.6); Glucose 99 mg/dL (65-115); HDL Cholesterol 47 mg/dL (60-100); LDL Cholesterol Calculated 122 mg/dL (50-129); Osmolality Calculated 285 mOsm/kg (285-295); Potassium 4.7 mmol/L (3.5-5.1); Sodium 136 mmol/L (136-145); Total Bilirubin 0.4 mg/dL (0.15-1.2); Total Protein 7.1 g/dL (6.6-8.7); Triglycerides 221 mg/dL (0-150)
[2024-05-29 10:34] LABS: Ferritin 43 ng/mL (30-400); Iron 88 ug/dL (59-158); Percent Saturation 42.5 % (20-50); Total Iron Binding Capacity 207 mcg/dl; Unsaturated Iron Binding 119 ug/dL (112-347)
== END 2024-06-29 09:17 | disposition home or self-care (01) ==
PROVIDERS: PCP Family Medicine; Visit Provider Internal Medicine Medical Oncology
DX: E83.110 Hereditary hemochromatosis (principal); E78.5 Hyperlipidemia, unspecified; Z87.891 Personal history of nicotine dependence; Z79.899 Other long term (current) drug therapy
CPT/HCPCS: 36415; 80053; 80061; 82728; 83540; 83550; 85025; 99214

== ENCOUNTER → 2024-06-16 11:06 | Outpatient (BNVA) | payer MEDICARE, OTHER, SELFPAY | PROVIDERS: PCP Family Medicine; Visit Provider Clinical Nurse Specialist Adult Health | DX: R30.0 Dysuria (principal); N41.0 Acute prostatitis; R82.71 Bacteriuria | CPT/HCPCS: 81000; 81003; 87077; 87086; 87184 ==

== ENCOUNTER → 2024-08-11 10:30 | Outpatient (BNVA) | payer MEDICARE, OTHER, SELFPAY | PROVIDERS: PCP Family Medicine; Visit Provider Student in an Organized Health Care Education/Training Program | DX: G56.02 Carpal tunnel syndrome, left upper limb; R20.0 Anesthesia of skin; R20.2 Paresthesia of skin | CPT/HCPCS: 73130; 99203 ==

== ENCOUNTER → 2024-09-12 07:46 | Outpatient (BNVA) | payer MEDICARE, OTHER, SELFPAY | PROVIDERS: PCP Family Medicine; Referring Provider Student in an Organized Health Care Education/Training Program; Visit Provider Specialist | DX: R20.0 Anesthesia of skin (principal); R20.2 Paresthesia of skin; G56.20 Lesion of ulnar nerve, unspecified upper limb; G56.03 Carpal tunnel syndrome, bilateral upper limbs | CPT/HCPCS: 95910 ==

== ENCOUNTER → 2024-09-14 09:03 | Outpatient (BNVA) | payer MEDICARE, OTHER, SELFPAY | PROVIDERS: PCP Family Medicine; Visit Provider Physician Assistant | DX: G56.02 Carpal tunnel syndrome, left upper limb (principal); G56.22 Lesion of ulnar nerve, left upper limb | CPT/HCPCS: 99214 ==

== ENCOUNTER 2024-10-16 11:01 | Day surgery (SDC) | payer MEDICARE, OTHER, SELFPAY ==
[2024-10-16] VITALS (10 sets, daily range): BP systolic 119–171; BP diastolic 63–84; PULSE 55–101; RESP 14–18; TEMP 36.1–36.6; O2SAT 95–99
--- NOTE | 2024-10-16 11:47 | ANES.PREANE2 ---
Pre-Anesthetic Assessment Height/Weight: Height 5 ft 8 in Weight 218 lb Temp Pulse Resp BP Pulse Ox O2 Del Method 98 F 101 H 18 152/84 95 Room Air 10/16/24 11:26 10/16/24 11:26 10/16/24 11:26 10/16/24 11:26 10/16/24 11:10/16/24 11:26 Preop Diagnosis: Cubital tunnel syndrome Operation Date: 10/16/24 13:35 Proposed Procedures p Carpal Tunnel Release(Left) - Alphonso Zapata, DO s Cubital Tunnel Release(Left) - Alphonso Gordo, DO s Ulnar Nerve Transposition(Left) - Alphonso Gordo, DO Was Beta Bernardino taken within 24 hours: N/A Was Clonidine taken within 24 hours: N/A Last intake: Intake Last Liquid Date 10/16/24 Last Liquid Time 08:00 Last Solid Date 10/15/24 Last Solid Time 20:00 Social No alcohol and No tobacco Exam alert, oriented x 3, clear to auscultation bilaterally and regular rate & rhythm Airway Submandibular: within normal limits Cervical ROM: within normal limits Mallampati: Class III Dentition: full Anesthetic Plan ASA status: 3 Anesthesia: General Other: No prior issues with anesthesia NPO since yesterday Patient has a prior history of prostatitis, s/p prostate surgery earlier this year History of hypertension on spironolactone, losartan and diltiazem EKG showing sinus rhythm with PACs and PVCs Patient has a history of aortic stenosis, follows with cardiology at [facility] [place] and I do not have records of his last echocardiogram. 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 Denies any pulmonary issues Plan for general anesthesia with preop nerve block Medications/Allergies Home Medications Medication Instructions Recorded Confirmed Last Taken Type acetaminophen 650 mg 650 mg PO Q12H PRN Pain (Scale 05/25/22 10/16/24 10/15/24 History tablet,extended release (Tylenol Score 4-6) Arthritis Pain) aspirin 81 mg capsule 81 mg PO DAILY 05/25/22 10/12/24 10/09/24 History multivitamin 1 tab PO DAILY 05/25/22 10/16/24 09/16/24 History hydrocodone 5 mg-acetaminophen 325 1 tab PO Q8H PRN pain 2 weeks #30 06/24/23 10/16/24 10/14/24 Rx mg tablet tabs cetirizine 10 mg capsule (All Day 10 mg PO DAILY PRN allergies 03/13/24 10/16/24 Unknown History Allergy (cetirizine)) cyclobenzaprine 10 mg tablet 10 mg PO TID PRN muscle spasm #30 03/21/24 10/16/24 Unknown Rx tabs diltiazem HCl 240 mg capsule,24 240 mg PO DAILY 06/06/24 10/16/24 10/15/24 History hr,extended release losartan 50 mg tablet 50 mg PO BID 06/06/24 10/16/24 10/15/24 History solifenacin 5 mg tablet 5 mg PO DAILY 06/06/24 10/16/24 10/15/24 History spironolactone 25 mg tablet 25 mg PO DAILY 06/06/24 10/16/24 10/15/24 History celecoxib 100 mg capsule 100 mg PO BID 10/16/24 10/16/24 09/25/24 History pantoprazole 40 mg tablet,delayed 40 mg PO DAILY 10/16/24 10/16/24 10/15/24 History release Allergies Allergy/AdvReac Type Severity Reaction Status Date / Time sulfamethoxazole Allergy hallucinati Verified 10/12/24 10:19 [From Bactrim] on trimethoprim [From Bactrim] Allergy hallucinati Verified 10/12/24 10:19 on PFSH Anesthesia Medical History Eustachian tube dysfunction Transient ischemic attack 2011 Gastroesophageal reflux disease Degenerative arthritis Prostatic hypertrophy benign Hyperlipidemia Hypertension Hereditary hemochromatosis Surgical History History of prostate surgery History of laminectomy 1972 History of hip replacement Left hip - 12/30/2021 - [facility] [place], [place], Dr. Tremayne Ovalle History of ankle fusion x 2 - 2009 Family History Denies family history of Diabetes CAD (coronary artery disease) Clotting disorder Dementia Hyperlipidemia Psychiatric illness Chronic kidney disease (CKD) Suicide Anesthesia complication Bleeding disorder Lung disease Cancer Hypertension Stroke Social History Smoking and tobacco/nicotine status: unknown if used tobacco/nicotine Quit status (tobacco/nicotine): has quit using Year quit tobacco: 1969 Former quit date comment: smoked for 30 years Alcohol intake: never Data Anesthesia Cardiac Studies: No Data to Display
[2024-10-16] MEDS: sodium chloride 0.9% 1,000 ML 30 ML IV (11:49)
[2024-10-16] MEDS: acetaminophen 1,000 MG/100 ML PIGGYBACK 400 MG IV (11:50)
[2024-10-16] MEDS: ketorolac 30 mg/mL INJ IVP (11:54)
--- NOTE | 2024-10-16 11:55 | P.HP_ITS ---
Same Day Surgery H&P Indication for Procedure/HPI DATE OF PROCEDURE: October 16, 2024 CHIEF COMPLAINT/INDICATIONFOR SURGICAL PROCEDURE: Left carpal tunnel syndrome, left cubital tunnel syndrome PREOP DIAGNOSIS: Left carpal tunnel syndrome, left cubital tunnel syndrome PLANNED PROCEDURE: Operation Date: 10/16/24 13:35 Proposed Procedures p Carpal Tunnel Release(Left) - Alphonso Levy, DO s Cubital Tunnel Release(Left) - Alphonso Levy, DO s Ulnar Nerve Transposition(Left) - Alphonso Levy, DO Medications/Allergies* Home Medications Medication Instructions Recorded Confirmed Type acetaminophen 650 mg 650 mg PO Q12H PRN Pain (Scale 05/25/22 10/16/24 History tablet,extended release (Tylenol Score 4-6) Arthritis Pain) aspirin 81 mg capsule 81 mg PO DAILY 05/25/22 10/12/24 History multivitamin 1 tab PO DAILY 05/25/22 10/16/24 History cetirizine 10 mg capsule (All Day 10 mg PO DAILY PRN allergies 03/13/24 10/16/24 History Allergy (cetirizine)) diltiazem HCl 240 mg capsule,24 240 mg PO DAILY 06/06/24 10/16/24 History hr,extended release losartan 50 mg tablet 50 mg PO BID 06/06/24 10/16/24 History solifenacin 5 mg tablet 5 mg PO DAILY 06/06/24 10/16/24 History spironolactone 25 mg tablet 25 mg PO DAILY 06/06/24 10/16/24 History celecoxib 100 mg capsule 100 mg PO BID 10/16/24 10/16/24 History pantoprazole 40 mg tablet,delayed 40 mg PO DAILY 10/16/24 10/16/24 History release Allergies/Adverse Reactions Allergy/AdvReac Type Severity Reaction Status Date / Time sulfamethoxazole Allergy hallucinati Verified 10/12/24 10:19 [From Bactrim] on trimethoprim [From Bactrim] Allergy hallucinati Verified 10/12/24 10:19 on Current Medications: Generic Name Dose Route Start Last Admin Trade Name Freq PRN Reason Stop Dose Admin Sodium Chloride 1,000 mls @ 30 mls/hr 10/16/24 11:15 10/16/24 11:49 Sodium Chloride 0.9% IV 10/17/24 11:14 30 mls/hr .Q24H ERNESTINA Administration Pertinent History/Comorbid Conditions* Medical History (Updated 09/14/24 @ 10:03 by EMEKA Benjamin) Eustachian tube dysfunction Transient ischemic attack 2011 Gastroesophageal reflux disease Degenerative arthritis Prostatic hypertrophy benign Hyperlipidemia Hypertension Hereditary hemochromatosis Surgical History (Updated 06/16/24 @ 11:35 by Kian Goodman NP) History of prostate surgery History of laminectomy 1972 History of hip replacement Left hip - 12/30/2021 - [place], [place], Dr. Tremayne Ovalle History of ankle fusion x 2 - 2010 Family History (Updated 05/25/22 @ 14:46 by Lisseth Farr LPN) Denies family history of Diabetes CAD (coronary artery disease) Clotting disorder Dementia Hyperlipidemia Psychiatric illness Chronic kidney disease (CKD) Suicide Anesthesia complication Bleeding disorder Lung disease Cancer Hypertension Stroke Social History Smoking and tobacco/nicotine status: unknown if used tobacco/nicotine Quit status (tobacco/nicotine): has quit using Year quit tobacco: 1969 Former quit date comment: smoked for 30 years Alcohol intake: never Pertinent Exam Findings alert, oriented x 3, operative site marked and procedure specific exam findings Please refer to detailed orthopedic examination on 09/14/2024 listed below: Examination left upper extremity: Examination left upper extremity demonstrates negative Spurling negative C-spine range of motion, negative Tinel's at the shoulder, positive Tinel's at the elbow with positive elbow flexion test as well as positive Tinel's as well as median nerve compression test and positive Phalen's of the left wrist. Thenar weakness appreciated as well as intrinsic weakness appreciated. Hand warm well-perfused. Right arm Hand exam-positive Tinel's and positive Phalen's test. No thenar atrophy and no thenar muscle weakness. Full range of motion in fingers and wrist and fingers are warm and well-perfused with normal cap refill under 2 seconds. Radial pulse 2+, no intrinsic muscle weakness noted. Elbow exam-positive Tinel's test . Recommendations Surgery/Procedure today Other Plans: Plan to proceed to the OR today for left carpal tunnel release, left cubital tunnel release with possible ulnar nerve transposition. Patient understands the ins and outs procedure the risk benefits complication alternatives surgery and through shared decision make elects proceed with surgical intervention. All questions answered at this time. Coding Level of Care Code Acute Code for Chg Fwd
[2024-10-16] MEDS: ceFAZolin 2,000 MG in sodium chloride 0.9% (plus) 50 ML 100 MG IV (12:10)
--- NOTE | 2024-10-16 12:26 | ANES.PROC ---
Anesthesia Procedures Procedure/Date: 10/16/24 Nerve Block ^: Nerve Block 1: Main Anesthesia: other (100mcg fentanyl) Time Out Performed: Yes Consent: requested by attending/covering physician Nerve block location: supraclavicular Anesthesia monitors applied: pulse oximetry, EKG, BP cuff and oxygen Nerve block position: supine Anesthetic Used: ropivicaine 0.5% Amount of anesthesia used (mL): 30 Ultrasound used to: recognize landmarks Nerve Stimulator Used?: Yes Interscalene/Femoral BLK: other needle (pjunk 4inch) Injection: neg aspiration of heme Patient Tolerated Procedure: well Complications: none
--- NOTE | 2024-10-16 13:05 | P.BOP_ITS ---
Date of Procedure: 10/16/2024 Surgeon: Alphonso Caro DO [employer] Structural Designer(s): Satish Caro PA-C Procedure(s) performed: Left carpal tunnel release Left cubital tunnel release Findings of the procedure(s): Patient found to have left carpal tunnel syndrome and left cubital tunnel syndrome underwent procedure as planned without issues or complications Estimated blood loss: 15 mL Specimen(s) removed: None Post-operative diagnosis: Left carpal tunnel syndrome, left cubital tunnel syndrome
--- NOTE | 2024-10-16 13:08 | P.OP_ITS ---
Operative Report Date of procedure: October 16, 2024 Surgeon: Alphonso Caro DO Counter Sales Representative: Satish Caro PA-C: PA was necessary for assistance in this case with hand positioning to execute the procedure, retraction and protection of neurovascular structures as well as to assist with wound closure and dressing application. Procedure: Preoperative diagnosis: Left carpal tunnel syndrome Left cubital tunnel syndrome Postoperative diagnosis: Same Procedure done: Left carpal tunnel release Left?cubital tunnel tunnel release (ulnar nerve decompression at elbow) Surgeon: Alphonso Caro DO Estimated blood loss: 15 mL Tourniquet= 18 minutes IV fluids: 500 mL Complications: None Findings: See operative report narrative Condition: stable Disposition: same day Brief History: Patient's been seen and worked up in the outpatient setting and findings consistent with preoperative diagnosis.? Patient has left carpal tunnel syndrome as well as left?cubital tunnel syndrome which has been worked up in the outpatient setting has physical exam findings consistent with this as well as confirmatory nerve conduction/EMG nerve conduction study consistent with diagnosis. As result through shared decision making agreed to proceed with?left carpal tunnel and left?cubital tunnel release with possible ulnar nerve transposition. We talked about treatment options as far as nonoperative and operative intervention.? Understands risk benefits complication alternatives surgical nonsurgical treatment options.? Understanding his risks he agrees to proceed with surgical intervention. Understanding these risks he agrees to proceed with surgery.? Consent obtained. Procedure: Patient seen evaluate in the preoperative holding area.? Consent was reviewed and signed with patient.? Correct extremity marked.? Patient seen evaluated by anesthesia department once cleared for surgery was then taken back to the operative suite placed in supine position all bony prominences well-padded patient properly secured to bed.? Left upper extremity placed onto armboard.? Nonsterile tourniquet applied left upper arm.? Patient then underwent anesthesia per the anesthesia department.? Patient's left upper extremity was then prepped and draped in standard orthopedic fashion.? Final timeout performed.? Patient received appropriate preoperative antibiotics. Esmarch was used exsanguinate the left upper extremity.? Tourniquet was insufflated to 250 mmHg. I started with the left carpal tunnel release first.? I made a standard open carpal tunnel release starting with the distal most extent in the palm at the Jaime's cardinal line and the incision line was made in line with the fourth ray and ended just distal to the wrist crease.? Sharp scalpel incision was made through skin and subcutaneous tissue I then utilizing self retainer then began to dissect with dissection scissors split longitudinally the palmar fascia.? Next I then utilizing my case assistant Otis retractors subsequently utilizing scalpel feathered through the palmaris brevis as well as through the transverse carpal ligament distally.? Once I encountered the floor of the transverse carpal ligament and entered into the carpal tunnel I then switched to dissection scissors.? Carefully released the distal extent of the transverse carpal ligament to the palmar fat.? Care was to protect the recurrent branch and not injured this during this part of the case.? Next I then placed a [place] underneath the transverse carpal ligament proximally to protect the nerve in the carpal tunnel contents.? And then I subsequently under loupe magnification utilize my dissection scissors to release the transverse carpal ligament into the antebrachial fascia under direct visualization with care to keep my scissors with a curved ulnarly away from the palmar cutaneous branch.? The transverse carpal was then completely decompressed proximally and a [place] was then placed both distally and proximally throughout the carpal tunnel and had complete decompression of the nerve.? The nerve did appear to have hourglass shape as it went through the carpal tunnel.? With significant irritation noted around the nerve.? No masses were noted within the contents of the carpal tunnel.? This completed the carpal tunnel release and then I subsequently irrigated the wound bed and placed a wet Ray-Hui into the incision for later closure. Next marked out the landmarks of the left elbow of the medial epicondyle and olecranon and made a curvilinear incision following the course of the ulnar nerve at the medial aspect of the elbow.? Sharp scalpel incision was made through skin and subcutaneous tissue.? Next I switched to Littler dissection scissors and spread in plane of the medial antebrachial cutaneous nerve bran addie which was protected throughout this part of the dissection.? Then I directly came down over the fascia and identified the 2 heads of the FCU fascia and split this in the middle and subsequently identified my ulnar nerve distally.? This was then completely released distally under direct visualization and loupe magnification.? Once the nerve was then identified I then subsequently tracked this proximally and released this through Hagan's ligament as well as complete decompression of the nerve proximally all the way past the intermuscular septum.? The nerve was completely released and decompressed both proximally and distally.? Ulnar nerve neurolysis performed and completed both proximally and distally with dissection scissors.? I then took the elbow through range of motion and there was no instability or subluxating of the ulnar nerve.? This completed?cubital tunnel release.? Next the wound bed was thoroughly irrigated.? Tourniquet was deflated.? Hemostasis was satisfactory at the?cubital tunnel release surgery site. I then inspected the carpal tunnel incision and this was found to have satisfactory hemostasis and all this was maintained through bipolar electrocautery.? At this point time I sequentially closed?cubital tunnel site with 3-0 Vicryl suture in a running horizontal mattress nylon stitch.? ? The carpal tunnel release surgery was then closed in standard interrupted mattress fashion.? Dressing was Xeroform 4 x 4's ABD Curlex soft roll and an Yann wrap has a bulky soft dressing. Patient was then awakened from anesthesia and taken to PACU in stable condition. Disposition: Patient taken to PACU in stable condition recovering well.? Patient will receive appropriate discharge instructions as well as pain medication postoperatively.? We will follow-up with Ortho in the office in 2 weeks.? Patient understands agrees with current plan.? All questions answered.? He understands if any questions or concerns and contact the office for follow-up appointment.
== END 2024-10-16 14:50 | disposition home or self-care (01) ==
PROVIDERS: PCP Family Medicine; Visit Provider Student in an Organized Health Care Education/Training Program
PROC: (CPT 64721; principal; 2024-10-16 13:25)
PROC: (CPT 64718; 2024-10-16 13:25)
DX: G56.02 Carpal tunnel syndrome, left upper limb (principal); G56.22 Lesion of ulnar nerve, left upper limb; Z79.82 Long term (current) use of aspirin; Z86.73 Personal history of transient ischemic attack (TIA), and cerebral infarction without residual deficits; E78.5 Hyperlipidemia, unspecified; I10 Essential (primary) hypertension; Z87.891 Personal history of nicotine dependence
CPT/HCPCS: 64718; 64721; J0131; J0690; J1885; J2371; J2405; J2704; J7030

== ENCOUNTER → 2024-11-01 08:55 | Outpatient (BNVA) | payer MEDICARE, OTHER, SELFPAY | PROVIDERS: PCP Family Medicine; Visit Provider Physician Assistant | DX: Z98.890 Other specified postprocedural states (principal) | CPT/HCPCS: 99024 ==

== ENCOUNTER 2024-12-08 16:00 | Oncology outpatient (recurring) (ONCR) | payer MEDICARE, OTHER, SELFPAY ==
[2024-11-29 10:10] LABS: Basophils % 0.5 %; Hematocrit 46.5 % (37-53); Lymphocytes # 1.6 10^3/uL (0.8-4.8); Lymphocytes % 39.3 %; Mean Corpuscular Hemoglobin 30.6 pg (27-33); Mean Corpuscular Volume 89.9 fl (82-101); Mean Platelet Volume 9.8 fL (7.4-10.4); Monocytes # 0.5 10^3/uL (0.2-0.9); Monocytes % 11.3 %; Neutrophils # 1.94 10^3/uL (1.8-7.7); Neutrophils % 48.6 %; Nucleated Red Blood Cells % 0 %; Platelet Count 185 10^3/cmm (157-399); Red Blood Count 5.17 10^6/uL (3.85-5.65); Red Cell Distribution Width 13.7 % (12.1-15.1); White Blood Count 3.99 10^3/uL (3.29-11.43)
[2024-11-29 11:51] LABS: Alanine Aminotransferase 19 U/L (0-41); Albumin Level 4.4 g/dL (3.5-5.2); Alkaline Phosphatase 115 U/L (40-130); Aspartate Amino Transferase 24 U/L (0-40); Blood Urea Nitrogen 23 mg/dL (8-23); Calcium 9.3 mg/dL (8.5-10.5); Carbon Dioxide 26 mmol/L (22-29); Chloride 103 mmol/L (98-107); Cholesterol 229 mg/dL (0-200); Ferritin 43 ng/mL (30-400); Globulin 2.9 g/dL (1.3-4.6); Glucose 140 mg/dL (65-115); Iron 87 ug/dL (59-158); Osmolality Calculated 294 mOsm/kg (285-295); Percent Saturation 41.6 % (20-50); Sodium 139 mmol/L (136-145); Total Bilirubin 0.4 mg/dL (0.15-1.2); Total Iron Binding Capacity 209 mcg/dl; Total Protein 7.3 g/dL (6.6-8.7); Unsaturated Iron Binding 122 ug/dL (112-347)
[2024-11-29 11:53] LABS: Anion Gap 14.2 (5-19); Potassium 4.2 mmol/L (3.5-5.1)
--- NOTE | 2024-12-08 16:00 | MR_ITS ---
WS: [id number] MRI LUMBAR SPINE NONCONTRAST TECHNIQUE: Sagittal T1, T2 and STIR imaging. Axial T1 and T2 imaging. CLINICAL INFORMATION: paresthesias/ sciatica COMPARISON: None. FINDINGS: 4 lumbar type vertebral bodies. First sacral segment considered L5 for the purposes of this dictation. Counting performed from the craniocervical junction. Small riblets at T12. T12-L1: Mild annular bulging. Spinal canal and foramen are patent. L1-L2: Disc desiccation. Slight retrolisthesis. Narrowing of the RIGHT subarticular recess. Mild RIGHT foraminal narrowing. Mild facet arthropathy. L2-L3: Retrolisthesis. Mild central canal stenosis with disc osteophyte complex. Narrowing of the RIGHT greater than LEFT subarticular recess. Moderate facet arthropathy. Moderate RIGHT foraminal narrowing. Mild LEFT foraminal narrowing. L3-L4: Retrolisthesis. Central disc protrusion. Moderate to severe central canal stenosis with facet arthropathy and ligamentum flavum hypertrophy. Impingement on the subarticular recess. Severe LEFT and moderate RIGHT foraminal narrowing. L4-L5: Disc bulge and osteophytic ridging. Severe LEFT foraminal narrowing. Moderate RIGHT foraminal narrowing. Advanced facet arthropathy with ligamentum flavum hypertrophy. Mild to moderate central canal stenosis. L5-S1: First sacral segment considered L5. Spinal canal and foramen are patent. Visualized pelvic bony structures: Normal. Paravertebral soft tissues: Normal. MR/MR lumbar spine wo con* [id number] IMPRESSION: 1. 4 lumbar type vertebral bodies. First sacral segment considered L5 for the purposes of this dictation. Counting performed from the craniocervical junction . Recommend plain film correlation prior to surgical intervention 2. Moderate to severe central canal stenosis L3-4 3. Mild central canal stenosis L2-3 and mild to moderate at L4-5. 4. Moderate to severe foraminal stenosis worse at RIGHT L2-3 LEFT L3-4 and LEF T L4-5. Moderate RIGHT L4-5 foraminal narrowing. 5. Retrolisthesis L1 on L2, L2 on L3, and L3 on L4.
== END 2024-12-22 23:59 | disposition home or self-care (01) ==
LOC: RAD 12-09 00:01 → ONCMED 12-11 09:56
PROVIDERS: Internal Medicine; Nurse Practitioner Family; PCP Family Medicine; Visit Provider Family Medicine
DX: M54.32 Sciatica, left side (principal); M48.061 Spinal stenosis, lumbar region without neurogenic claudication; M43.16 Spondylolisthesis, lumbar region
CPT/HCPCS: 36415; 72148; 80053; 82465; 82728; 83540; 83550; 85025

== ENCOUNTER → 2025-01-10 09:21 | Outpatient (BNVA) | payer MEDICARE, OTHER, SELFPAY | PROVIDERS: PCP Family Medicine; Visit Provider Physician Assistant | DX: Z98.890 Other specified postprocedural states (principal) | CPT/HCPCS: 99024 ==

== ENCOUNTER → 2025-03-27 10:37 | Outpatient (BNVA) | payer MEDICARE, OTHER, SELFPAY | PROVIDERS: PCP Family Medicine; Referring Provider Family Medicine; Visit Provider Psychiatry & Neurology Neurology | DX: G45.9 Transient cerebral ischemic attack, unspecified (principal); G40.909 Epilepsy, unspecified, not intractable, without status epilepticus | CPT/HCPCS: 99203 ==

== ENCOUNTER 2025-05-29 08:34 | Oncology outpatient (recurring) (ONCR) | payer MEDICARE, OTHER, SELFPAY ==
[2025-05-29 09:17] LABS: Hematocrit 40.9 % (37-53); Hemoglobin 13.40 g/dL (11.27-16.99); Mean Corpuscular HGB Conc 32.8 g/dL (30-55); Mean Corpuscular Hemoglobin 29.6 pg (27-33); Mean Corpuscular Volume 90.3 fl (82-101); Nucleated Red Blood Cells % 0 %; Platelet Count 250 10^3/cmm (157-399); Red Blood Count 4.53 10^6/uL (3.85-5.65); White Blood Count 4.89 10^3/uL (3.29-11.43)
[2025-05-29 09:36] LABS: Alanine Aminotransferase 12 U/L (0-41); Albumin Level 4.0 g/dL (3.5-5.2); Alkaline Phosphatase 143 U/L (40-130); Anion Gap 14.5 (5-19); Aspartate Amino Transferase 19 U/L (0-40); Blood Urea Nitrogen 16 mg/dL (8-23); Calcium 9.6 mg/dL (8.5-10.5); Carbon Dioxide 28 mmol/L (22-29); Chloride 102 mmol/L (98-107); Cholesterol 153 mg/dL (0-200); Creatinine Clr Calc Pharmacy 88.9429; Globulin 3.3 g/dL (1.3-4.6); Glucose 109 mg/dL (65-115); HDL Cholesterol 48 mg/dL (60-100); Osmolality Calculated 292 mOsm/kg (285-295); Potassium 4.5 mmol/L (3.5-5.1); Sodium 140 mmol/L (136-145); Total Protein 7.3 g/dL (6.6-8.7); Triglycerides 174 mg/dL (0-150)
[2025-05-29 10:23] LABS: Estmated Average Glucose 117; Hemoglobin A1C 5.7 % (4.0-6.0)
[2025-05-29 10:45] VITALS: BP 124/78; PULSE 78; RESP 17; TEMP 36.6; O2SAT 98
[2025-05-29 11:03] LABS: Ferritin 143 ng/mL (30-400); Iron 80 ug/dL (59-158); Total Iron Binding Capacity 222 mcg/dl; Unsaturated Iron Binding 142 ug/dL (112-347)
== END 2025-06-24 23:59 | disposition home or self-care (01) ==
PROVIDERS: Nurse Practitioner Family; PCP Family Medicine; Visit Provider Family Medicine
DX: E83.110 Hereditary hemochromatosis (principal); M54.32 Sciatica, left side; M48.061 Spinal stenosis, lumbar region without neurogenic claudication; M43.16 Spondylolisthesis, lumbar region; E78.5 Hyperlipidemia, unspecified; I10 Essential (primary) hypertension
CPT/HCPCS: 36415; 80053; 80061; 82728; 83010; 83036; 83540; 83550; 83615; 85025; 86140; 99195; 99214

== ENCOUNTER 2025-06-18 11:28 | Outpatient (CLI) | payer MEDICARE, OTHER, SELFPAY ==
--- NOTE | 2025-06-18 11:45 | MR_ITS ---
WS: [id number] MRI ABDOMEN WITH AND WITHOUT CONTRAST. COMPARISON: Chest CT 05/03/2025, CT abdomen 06/08/2012 Multiplanar, multisequence imaging is performed with and without contrast. MultiHance 20 mL. Spleen: Normal size spleen. Previously described hyperdense lesion along the superior capsule of the spleen is very difficult to identify. Seen only on the postcontrast imaging is an area of enhancement measuring 9 mm. No additional splenic lesions are identified. There is no adjacent fluid. Normal size liver with diffuse hepatic steatosis. No intrahepatic duct dilatation. No mass. Patient has known gallstones which were better visualized on the chest CT. Normal pancreas and adrenal glands. No renal obstruction. No mass. Minimal atherosclerosis aorta with no aneurysm. No ascites. No adenopathy. Visualized GI tract is negative. MR/MR abdomen wo/w con* [id number] IMPRESSION: 1. Nonspecific 9 mm splenic lesion along the superior capsule. Lesion is only identified on the postcontrast imaging. This may be a small hemangioma or compl ex cyst. Difficult to visualize in all sequences due to its position adjacent t o the diaphragm which is mobile with breathing during this exam. Suggest follow -up CT abdomen with and without contrast in 3 months to ensure stability. 2. Cholelithiasis. 3. No enhancing lesions in the liver or adrenal glands. 4. No ascites.
[2025-06-18] MEDS: gadobenate dimeglumine 20 mL vial IV (12:49)
== END 2025-06-18 11:29 | disposition home or self-care (01) ==
LOC: RAD 11:30
PROVIDERS: PCP Family Medicine; Visit Provider Family Medicine
DX: D73.89 Other diseases of spleen (principal); K80.20 Calculus of gallbladder without cholecystitis without obstruction
CPT/HCPCS: 74183

== ENCOUNTER 2025-09-17 09:24 | Oncology outpatient (recurring) (ONCR) | payer MEDICARE, OTHER, SELFPAY ==
--- NOTE | 2025-09-17 10:00 | CTR_ITS ---
PROCEDURE INFORMATION: Exam: CT Abdomen Without And With Contrast Exam date and time: 09/17/2025 10:10 AM Age: 75 years old Clinical indication: Abnormal findings; Abnormal radiologic finding of the abdomen; Radiologic exam and body structure: MR abdomen; Additional info: F/u on spleen lesion, TECHNIQUE: Imaging protocol: Computed tomography of the abdomen without and with contrast. Radiation optimization: All CT scans at this facility use at least one of these dose optimization techniques: automated exposure control; mA and/or kV adjustment per patient size (includes targeted exams where dose is matched to clinical indication); or iterative reconstruction. Contrast material: OMNI 350; Contrast volume: 100 ml; Contrast route: INTRAVENOUS (IV); COMPARISON: MR abdomen wo/w con* [id number] 06/18/2025 12:19 PM RADIATION DOSE METRICS: Total DLP (mGy-cm): 1920.96 FINDINGS: Lungs: Mild bibasilar atelectasis. Heart: Aortic valve calcifications. Liver: Hepatic steatosis. Gallbladder and biliary ducts: Cholelithiasis without CT evidence of acute cholecystitis. Pancreas: Normal. No ductal dilation. Spleen: Again seen is an exophytic lesion arising along the superior aspect of the spleen measuring up to 1.7 cm which is slightly hypointense to the adjacent spleen on the precontrast images and demonstrates arterial phase hyperenhancement which becomes isointense to the adjacent splenic parenchyma on the portal venous phase. The spleen is normal in size. Adrenal glands: Normal. No mass. Kidneys: Normal. No hydronephrosis. Stomach and bowel: Visualized stomach and bowel are unremarkable. No obstruction. No mucosal thickening. Intraperitoneal space: Unremarkable. No free air. No significant fluid collection. Vasculature: Mild atherosclerotic aortic calcifications. No abdominal aortic aneurysm. Lymph nodes: Unremarkable. No enlarged lymph nodes. Bones/joints: Multilevel degenerative changes of the visualized spine. No acute fracture. No dislocation. Soft tissues: Unremarkable. CT/CT abdomen wo/w con [id number] IMPRESSION: 1. Stable splenic lesion favoring a hemangioma. 2. Hepatic steatosis. 3. Cholelithiasis.
[2025-09-17 10:08] LABS: Blood Urea Nitrogen 19 mg/dL (8-23)
[2025-09-17] MEDS: iohexol 350 mg/mL 500 mL Btl (per mL) IV (10:13)
== END 2025-09-23 23:59 | disposition home or self-care (01) ==
LOC: ONCMED 09:25
PROVIDERS: PCP Family Medicine; Visit Provider Family Medicine
DX: E83.110 Hereditary hemochromatosis (principal); M54.32 Sciatica, left side; M48.061 Spinal stenosis, lumbar region without neurogenic claudication; M43.16 Spondylolisthesis, lumbar region; E78.5 Hyperlipidemia, unspecified; I10 Essential (primary) hypertension; D73.89 Other diseases of spleen
CPT/HCPCS: 74170; 82565; 84520